=== PATIENT | male | born 1965 | race Caucasian/White ===

== ENCOUNTER 2017-04-20 23:12 | Emergency (ER) | payer OTHER | END 2017-04-21 00:35 | disposition home or self-care (01) | LOC: FER 23:12 | DX: M54.6 Pain in thoracic spine (principal); M19.90 Unspecified osteoarthritis, unspecified site; F17.210 Nicotine dependence, cigarettes, uncomplicated; Z90.49 Acquired absence of other specified parts of digestive tract; Z79.899 Other long term (current) drug therapy | CPT/HCPCS: J1885 ==

== ENCOUNTER 2020-09-21 11:23 | Emergency (ER) | payer OTHER ==
[~2020-09-21 11:23] MED LIST: AMOXICILLIN875 MG PO; AUGMENTIN 500-1 EACH PO; CARAFATE1 GM PO; CYMBALTA 30MG C30 MG PO; FLEXERIL10 MG PO; HYDROCODON-ACE1 EAC2 PO; IBUPROFEN800 MG PO; LIPITOR 10MG TA10 MG PO; MEDROL 4MG DOSEP4 MG PO; MOBIC7.5 MG PO; MUCINEX 600MG600 MG PO; NORCO 7.5-3251 EACH PO; PERCOCET 5-3251 EACH PO; PRILOSEC20 MG PO; PROTONIX 40MG T40 MG PO; TIZANIDINE HCL4 M1 PO; VENTOLIN HFA IN18 GM INH; ZPAK PO
[2020-09-21 12:03] LABS: BASOPHIL 0.8 % (0-2); EOSINOPHIL 2.2 % (0-5); HCT 45.8 % (42.0-52.0); HGB 15.1 g/dl (13.2-18.0); MCH 30.6 pg (25.0-31.0); MCV 92.7 fL (78.0-100.0); MONOCYTE 8.8 % (0-12); MPV 10.7 fL (6.0-9.5); NEUTROPHIL 61.7 % (41-80); NRBC 0; PLT 385 K/uL (150-400); RBC 4.94 M/uL (4.70-6.00); RDW 13.8 % (11.5-14.0); WBC 17.1 K/uL (4.0-10.5)
[2020-09-21 12:04] LABS: BILIRUBIN NEGATIVE (NEGATIVE); BLOOD NEGATIVE Ery/uL (NEGATIVE); CLARITY CLEAR (CLEAR); COLOR YELLOW (YELLOW); GLUCOSE (U) NORMAL (NORMAL); LEUKOCYTES NEGATIVE Leu/uL (NEGATIVE); NITRITE NEGATIVE (NEGATIVE); PROTEIN NEGATIVE (NEGATIVE); SPECIFIC GRAVITY 1.025 (1.001-1.030); UROBILINOGEN 0.2 mg/dL (0.2-1.0)
[2020-09-21 12:39] LABS: ALBUMIN 3.4 g/dL (3.4-5.0); BILIRUBIN - TOTAL 0.3 mg/dL (0.2-1.0); BUN/CREAT RATIO (CALC) 13.6 RATIO; CREATININE 0.66 mg/dL (0.67-1.17); GLOBULIN (CALCULATION) 4.3 g/dL; POTASSIUM 3.6 mmol/L (3.5-5.1); TOTAL PROTEIN 7.7 g/dL (6.4-8.2)
[2020-09-21 14:17] LABS: LACTIC ACID 2.7 mmol/L (0.4-1.9)
[2020-09-21 16:05] LABS: CORONAVIRUS 2019 SARS-COV-2 NEGATIVE (NEGATIVE); INFLUENZA A NAA NEGATIVE (NEGATIVE)
[2020-09-21] MEDS ORDERED: AUGMENTIN 875-1 EACH PO (17:29)
[2020-10-27] MEDS ORDERED: PANTOPRAZOLE SO40 MG PO (14:45)
[2020-10-27] MEDS ORDERED: BACLOFEN 10MG T10 MG PO (14:46)
[2020-10-27] MEDS ORDERED: ANORO ELLIPTA1 EACH INH (14:47)
[2020-11-03] MEDS ORDERED: GINSENG COMPLE1 EACH PO (09:28)
[2020-11-03] MEDS ORDERED: DAILY VITAMIN1 EAC2 PO (09:29)
[2020-12-25] MEDS ORDERED: MOTRIN600 MG PO (12:04)
[2020-12-25] MEDS ORDERED: ACETAMINOPHEN500 M1 PO (12:04)
[2020-12-25] MEDS ORDERED: COLACE100 MG PO (12:04)
[2020-12-25] MEDS ORDERED: OXY-IR 5MG5 MG PO (12:04)
== END 2020-09-21 17:48 | disposition home or self-care (01) ==
LOC: FER 11:23
PROVIDERS: Emergency Medicine; Nurse Practitioner Family
DX: J06.9 Acute upper respiratory infection, unspecified (principal); R10.9 Unspecified abdominal pain; J44.9 Chronic obstructive pulmonary disease, unspecified; Z90.49 Acquired absence of other specified parts of digestive tract; Z87.19 Personal history of other diseases of the digestive system; Z79.899 Other long term (current) drug therapy; Z20.822 Contact with and (suspected) exposure to COVID-19
CPT/HCPCS: 36415; 80053; 81003; 82150; 83605; 83690; 84145; 85025; J7030; Q9967; U0002

== ENCOUNTER 2020-10-21 22:48 | Emergency (ER) | payer OTHER ==
[~2020-10-21 22:48] MED LIST changes: +AUGMENTIN 875-1 EACH PO
[2020-10-22] MEDS ORDERED: PERCOCET 7.5/321 TAB PO (01:12)
[2020-10-22] MEDS ORDERED: AMOXICILLIN500 MG PO (01:12)
[2020-10-27] MEDS ORDERED: PANTOPRAZOLE SO40 MG PO (14:45)
[2020-10-27] MEDS ORDERED: BACLOFEN 10MG T10 MG PO (14:46)
[2020-10-27] MEDS ORDERED: ANORO ELLIPTA1 EACH INH (14:47)
[2020-11-03] MEDS ORDERED: GINSENG COMPLE1 EACH PO (09:28)
[2020-11-03] MEDS ORDERED: DAILY VITAMIN1 EAC2 PO (09:29)
[2020-12-25] MEDS ORDERED: ACETAMINOPHEN500 M1 PO (12:04)
[2020-12-25] MEDS ORDERED: MOTRIN600 MG PO (12:04)
[2020-12-25] MEDS ORDERED: COLACE100 MG PO (12:04)
[2020-12-25] MEDS ORDERED: OXY-IR 5MG5 MG PO (12:04)
== END 2020-10-22 01:48 | disposition home or self-care (01) ==
LOC: FER 22:48
DX: K05.219 Aggressive periodontitis, localized, unspecified severity (principal); K03.81 Cracked tooth; K02.9 Dental caries, unspecified; J44.9 Chronic obstructive pulmonary disease, unspecified; F17.210 Nicotine dependence, cigarettes, uncomplicated; Z87.19 Personal history of other diseases of the digestive system
CPT/HCPCS: 99282; J1885; Q0163

== ENCOUNTER → 2020-11-03 | Day surgery (SDC) | payer OTHER ==
[~2020-11-03] VITALS: Ht 182.9 cm; Wt 91.2 kg
[~2020-11-03] MED LIST changes: +ACETAMINOPHEN500 M1 PO; +AMOXICILLIN500 MG PO; +ANORO ELLIPTA1 EACH INH; +BACLOFEN 10MG T10 MG PO; +CEPHALEXIN500 M1 PO; +COLACE100 MG PO; +DAILY VITAMIN1 EAC2 PO; +GINSENG COMPLE1 EACH PO; +MOTRIN600 MG PO; +OXY-IR 5MG5 MG PO; +PANTOPRAZOLE SO40 MG PO; +PERCOCET 7.5/321 TAB PO
== END | disposition home or self-care (01) ==
LOC: FAS 08:41
DX: K63.5 Polyp of colon (principal); K62.1 Rectal polyp; K57.30 Diverticulosis of large intestine without perforation or abscess without bleeding; K42.9 Umbilical hernia without obstruction or gangrene; J44.9 Chronic obstructive pulmonary disease, unspecified; F17.219 Nicotine dependence, cigarettes, with unspecified nicotine-induced disorders; E78.5 Hyperlipidemia, unspecified; F10.20 Alcohol dependence, uncomplicated; N32.89 Other specified disorders of bladder; Z82.49 Family history of ischemic heart disease and other diseases of the circulatory system; Z80.0 Family history of malignant neoplasm of digestive organs; Z79.899 Other long term (current) drug therapy
CPT/HCPCS: 93005; J2704; J7120

== ENCOUNTER → 2020-12-25 | Day surgery (SDC) | payer OTHER ==
[~2020-12-25] VITALS: Ht 182.9 cm; Wt 91.2 kg
[2020-12-25 10:12] LABS: BUN/CREAT RATIO (CALC) 16.7 RATIO; CREATININE 0.66 mg/dL (0.67-1.17); POTASSIUM 4.2 mmol/L (3.5-5.1)
== END | disposition home or self-care (01) ==
LOC: FAS 09:00
PROVIDERS: Student in an Organized Health Care Education/Training Program
DX: K42.0 Umbilical hernia with obstruction, without gangrene (principal); J44.9 Chronic obstructive pulmonary disease, unspecified; F17.210 Nicotine dependence, cigarettes, uncomplicated
CPT/HCPCS: 36415; 80048; J0690; J1100; J1644; J2001; J2250; J2405; J2704; J3010; J7120

== ENCOUNTER 2021-01-04 23:09 | Emergency (ER) | payer OTHER ==
[~2021-01-04 23:09] MED LIST changes: -CEPHALEXIN500 M1 PO
[2021-01-05 00:43] LABS: BASOPHIL 0.7 % (0-2); EOSINOPHIL 3.8 % (0-5); HCT 40.2 % (42.0-52.0); HGB 13.6 g/dl (13.2-18.0); LYMPHOCYTE 29.3 % (15-48); MCH 31.3 pg (25.0-31.0); MCHC 33.8 g/dL (32.0-36.0); MCV 92.4 fL (78.0-100.0); MONOCYTE 9.1 % (0-12); MPV 11.4 fL (6.0-9.5); NEUTROPHIL 56.4 % (41-80); NRBC 0; PLT 375 K/uL (150-400); RBC 4.35 M/uL (4.70-6.00); RDW 13.2 % (11.5-14.0); WBC 13.8 K/uL (4.0-10.5)
[2021-01-05 01:02] LABS: ALBUMIN 3.3 g/dL (3.4-5.0); BILIRUBIN - TOTAL 0.2 mg/dL (0.2-1.0); BUN/CREAT RATIO (CALC) 17.2 RATIO; CREATININE 0.64 mg/dL (0.67-1.17); POTASSIUM 3.2 mmol/L (3.5-5.1); TOTAL PROTEIN 7.3 g/dL (6.4-8.2)
[2021-01-05] MEDS ORDERED: CEPHALEXIN500 M1 PO (02:41)
== END 2021-01-05 02:49 | disposition home or self-care (01) ==
LOC: FER 23:09
PROVIDERS: Emergency Medicine
DX: L76.34 Postprocedural seroma of skin and subcutaneous tissue following other procedure (principal); I10 Essential (primary) hypertension; E78.5 Hyperlipidemia, unspecified; F17.210 Nicotine dependence, cigarettes, uncomplicated; Z90.49 Acquired absence of other specified parts of digestive tract; Z98.890 Other specified postprocedural states; Z79.899 Other long term (current) drug therapy; Y83.8 Other surgical procedures as the cause of abnormal reaction of the patient, or of later complication, without mention of misadventure at the time of the procedure
CPT/HCPCS: 36415; 80053; 85025; J1170; J2405; J7030; Q9967

== ENCOUNTER 2022-01-17 18:54 | Emergency (ER) | payer MEDICARE ==
[~2022-01-17 18:54] MED LIST changes: +CEPHALEXIN500 M1 PO
[2022-01-17 22:48] LABS: BASOPHIL 0.9 % (0-2); EOSINOPHIL 1.9 % (0-5); HCT 48.2 % (42.0-52.0); HGB 16.3 g/dl (13.2-18.0); LYMPHOCYTE 30.7 % (15-48); MCH 31.1 pg (25.0-31.0); MCHC 33.8 g/dL (32.0-36.0); MONOCYTE 8.6 % (0-12); MPV 10.8 fL (6.0-9.5); NEUTROPHIL 57.3 % (41-80); NRBC 0; PLT 417 K/uL (150-400); RBC 5.24 M/uL (4.70-6.00); RDW 13.1 % (11.5-14.0); WBC 12.7 K/uL (4.0-10.5)
[2022-01-17 22:51] LABS: BILIRUBIN 1+ mg/dL (NEGATIVE); BLOOD 3+ Ery/uL (NEGATIVE); COLOR YELLOW (YELLOW); GLUCOSE (U) NORMAL (NORMAL); LEUKOCYTES NEGATIVE Leu/uL (NEGATIVE); NITRITE NEGATIVE (NEGATIVE); PROTEIN 1+ mg/dL (NEGATIVE); UROBILINOGEN 0.2 mg/dL (0.2-1.0)
[2022-01-17 23:00] LABS: CLARITY SLIGHTLY HAZY (CLEAR)
[2022-01-17 23:01] LABS: ALBUMIN 3.9 g/dL (3.4-5.0); BILIRUBIN - TOTAL 0.4 mg/dL (0.2-1.0); BUN/CREAT RATIO (CALC) 13.7 RATIO; CREATININE 0.73 mg/dL (0.67-1.17); GLOBULIN (CALCULATION) 4.6 g/dL; POTASSIUM 4.1 mmol/L (3.5-5.1); TOTAL PROTEIN 8.5 g/dL (6.4-8.2)
[2022-01-17 23:03] LABS: BACTERIA TRACE; URINARY RBC 20-50; URINARY WBC RARE
[2022-01-18] MEDS ORDERED: PERCOCET 5-3251 EACH PO (01:32)
== END 2022-01-18 02:05 | disposition home or self-care (01) ==
LOC: FER 18:54
PROVIDERS: Internal Medicine
DX: R10.2 Pelvic and perineal pain (principal); R31.9 Hematuria, unspecified; F17.210 Nicotine dependence, cigarettes, uncomplicated
CPT/HCPCS: 36415; 80053; 81001; 85025